=== PATIENT | male | born 1980 ===

== ENCOUNTER 2020-08-09 21:24 | Emergency (ER) | payer OTHER ==
[2020-08-09] MEDS ORDERED: CLEOCIN HCL300 MG PO (21:52)
[2020-08-09] MEDS ORDERED: DICLOFENAC SODI50 MG PO (21:52)
[2020-08-09 22:26] VITALS: BP 120/72
== END 2020-08-09 22:24 | disposition home or self-care (01) ==
LOC: D.ER 21:24
DX: S50.11XA Contusion of right forearm, initial encounter (principal); S50.811A Abrasion of right forearm, initial encounter; W20.8XXA Other cause of strike by thrown, projected or falling object, initial encounter; Y93.9 Activity, unspecified; Y92.9 Unspecified place or not applicable